=== PATIENT | male | born 1980 | race Asian ===

== ENCOUNTER 2020-07-15 08:30 | Outpatient (REF) | payer MEDICAID, SELFPAY ==
--- NOTE | ~2020-07-15 | XR_ITS ---
EXAMINATION: XR SHOULDER, LEFT CLINICAL INFORMATION: Pain left shoulder COMPARISON: X-ray left shoulder March 2000 TECHNIQUE: AP external rotation, Grashey, scapular Y, and axillary views of the left shoulder. FINDINGS: The bones and soft tissues are normal. No fracture. Glenohumeral and acromioclavicular alignment is anatomic with normal joint space. No abnormal soft tissue calcifications. XR/XR shoulder LT min 2V IMPRESSION: Normal left shoulder.
== END 2020-07-15 08:31 | disposition home or self-care (01) ==
LOC: HO.HOSX 08:30
PROVIDERS: Visit Provider Physician Assistant
DX: G25.89 Other specified extrapyramidal and movement disorders (principal); M54.2 Cervicalgia; M25.512 Pain in left shoulder; I10 Essential (primary) hypertension
CPT/HCPCS: 73030; 99202

== ENCOUNTER → 2020-09-12 14:49 | Outpatient (BNVA) | payer OTHER, MEDICAID, SELFPAY | PROVIDERS: PCP Family Medicine; Visit Provider Anesthesiology | DX: M54.2 Cervicalgia (principal); M89.9 Disorder of bone, unspecified; G89.4 Chronic pain syndrome | CPT/HCPCS: 99212 ==

== ENCOUNTER 2020-10-11 10:00 | Outpatient (RCR) | payer OTHER, MEDICAID, SELFPAY ==
--- NOTE | 2020-08-05 17:43 | MHC.PT.EP ---
[facility] [place] Office [place] Office [place] Office [address] Joesph Arroyo [address] [phone] F: [phone] F: [phone] F: [phone] F: [phone] Physical Therapy Plan of Care Date of Evaluation: Date of Surgery: Diagnosis: L scapular dyskinesis. Assessment: Pt is a 40 y/o male referred to PT for eval and treat of L scapular dyskinesis who presents with signs and sx consistent with L shoulder dysfunction resulting in decreased tolerance and ability to perform reaching a high shelf, pushing, pulling, lifting and carrying objects of weight, as well as decreased tolerance for driving secondary to decreased L UE strength and ROM, decreased posture, increased tissue tension and pain. Pt is deemed an appropriate candidate to receive skilled PT in order to address his physical limitations to improve his functional ability. Frequency and Duration: The patient will be seen 2 x / wk x 5 wks. Short Term Goals: Initiate HEP with evidence of compliance. Improve baseline pain with activity to < 5/10; initial: 8/10. Detention Goals: Symmetrical shoulder ROM achieved. Improved L shoulder ER MMT to > 4/5; initial 4-/5. I with HEP. Pt will be amando to tolerate driving for his job with managed Sx > 2 hours; initial < 30 min. Treatment Plan: Modalities to reduce pain, spasms and effusion. Manual therapy to restore motion and function. Therapeutic exercise to improve strength and flexibility. Neuromuscular re-education for posture and balance. Therapeutic activities to return to functional activities of daily living. Electronically signed by: Christo Chung PT. Please sign and return to therapist. Thank you for your referral.
--- NOTE | 2020-10-27 09:37 | MHC.PT.DC ---
[facility] [place] Office [place] Office [place] Office [address] Joesph Arroyo [address] [phone] F: [phone] F: [phone] F: [phone] F: [phone] Physical Therapy Discharge Report Diagnosis: L scapular dyskinesis. Date of Surgery: Date of Evaluation: 08/05/20 Date of Discharge: 10/27/20 Treatments to Date: 14 Cancellations to Date: 0 No Shows to Date: 0 Discharge Status: Improved Function Independent with HEP Discharge Summary: Shay has been an active participant in his therapy in and out of the clinic and although he has not achieved symmetrical shoulder ROM he has tata many of his therapeutic goals, is significantly improved of his pain and functional ability; he is I with his home program and motivated for return to gym exercise for health and management. Electronically signed by: Christo Chung PT. Please sign and return to therapist. Thank you for your referral.
== END 2020-10-27 09:38 | disposition home or self-care (01) ==
LOC: HO.PTCHIC 10:00
PROVIDERS: PCP Family Medicine; Visit Provider Physician Assistant
DX: G25.89 Other specified extrapyramidal and movement disorders (principal)
CPT/HCPCS: 97014; 97110; 97140; 97161; 97164